=== PATIENT | female | born 1990 | race Caucasian/White ===

== ENCOUNTER 2019-01-10 04:20 | Inpatient (IN) | payer BC ==
[2019-01-10] MEDS ORDERED: SODIUM CHLORIDE 0.9% FLUSH 10 ML SOL IV PRN (05:14)
[2019-01-10] MEDS ORDERED: FENTANYL 100MCG/2ML SOL IV PRN (05:14)
[2019-01-10] MEDS ORDERED: MEPIVACAINE HCL 1% MPF 30 ML/VIAL SOL INFIL PRN (05:14)
[2019-01-10] MEDS ORDERED: METHYLERGONOVINE MALEATE 0.2 MG/ML SOL IM PRN (05:14)
[2019-01-10] MEDS ORDERED: CARBOPROST 250 MCG/ML SOL IM PRN (05:14)
[2019-01-10] MEDS: SODIUM CHLORIDE 0.9% FLUSH 10 ML SOL IV SCH ×3 (05:15→20:39)
[2019-01-10] MEDS ORDERED: EPHEDRINE SULFATE 50 MG/ML SOL IV PRN (12:14)
[2019-01-10] MEDS ORDERED: DIPHENHYDRAMINE 50 MG/ML SOL IV PRN (12:14)
[2019-01-10] MEDS ORDERED: NALOXONE HYDROCHLORIDE 0.4 MG/ML SOL IV PRN (12:14)
[2019-01-10] MEDS ORDERED: NALBUPHINE HCL 20 MG/ML SOL IV PRN (12:14)
[2019-01-10] MEDS ORDERED: LACTATED RINGERS 1,000 ML IV SCH (12:15)
[2019-01-10] MEDS: LACTATED RINGERS 1,000 ML IV PRN ×2 (12:25→13:50)
[2019-01-10] MEDS ORDERED: FENTANYL 250 MCG/ 5ML SOL ONE (12:29)
[2019-01-10] MEDS ORDERED: LIDOCAINE HCL 2% MPF 10 ML SOL ONE (12:29)
[2019-01-10] MEDS ORDERED: ROPIVACAINE HYDROCHLORIDE 5 MG/ML SOL ONE (12:29)
[2019-01-10] MEDS ORDERED: LIDOCAINE 1% W/EPI MPF 30 ML SOL ONE (12:30)
[2019-01-10 12:36] LABS: BASOPHILS % (AUTO) 1 % (0-3); EOSINOPHILS % (AUTO) 1 % (0-9); HEMATOCRIT 33 % (35-47); LYMPHOCYTES % (AUTO) 18.6 % (10-50); MEAN CORPUSCULAR HEMOGLOBIN 28.1 pg (27.0-32.0); MEAN CORPUSCULAR HGB CONC 33.2 gm/dl (32.0-36.0); MEAN CORPUSCULAR VOLUME 85 fL (81-99); MONOCYTES % (AUTO) 8.5 % (0-12); NEUTROPHILS % (AUTO) 71.2 % (37-80)
[2019-01-10] MEDS: OXYTOCIN 10000 MU/ML SOL IM PRN ×2 (15:36→15:40)
[2019-01-10] MEDS ORDERED: BENZOCAINE/MENTHOL 1 SPR TOP PRN (16:15)
[2019-01-10] MEDS ORDERED: METHYLERGONOVINE MALEATE 0.2 MG TAB PO PRN (16:15)
[2019-01-10] MEDS ORDERED: WITCH HAZEL 1 EA PAD TOP PRN (16:15)
[2019-01-10] MEDS ORDERED: BISACODYL 10 MG SUP PR PRN (16:15)
[2019-01-10] MEDS ORDERED: FLEET ENEMA PR PRN (16:15)
[2019-01-10] MEDS ORDERED: TEMAZEPAM 15MG 15 MG CAP PO PRN (16:15)
[2019-01-10] MEDS: LACTATED RINGERS 1,000 ML IV SCH (18:21)
[2019-01-10] MEDS: IBUPROFEN 600 MG TAB PO PRN (18:21)
[2019-01-10] MEDS ORDERED: OXYTOCIN 10000 MU/ML SOL ONE ×2 (18:37→18:43)
[2019-01-10] MEDS ORDERED: EPHEDRINE SULFATE 50 MG/ML SOL ONE (18:43)
[2019-01-10] MEDS: DOCUSATE SODIUM 100 MG SGL PO SCH (20:39)
[2019-01-10] MEDS: APAP/HYDROCODONE 1 EACH TABLET PO PRN (22:20)
[2019-01-11] MEDS: SODIUM CHLORIDE 0.9% FLUSH 10 ML SOL IV SCH ×3 (03:29→15:18)
[2019-01-11] MEDS: IBUPROFEN 600 MG TAB PO PRN ×3 (06:49→21:02)
[2019-01-11] MEDS: DOCUSATE SODIUM 100 MG SGL PO SCH ×2 (17:25→21:02)
[2019-01-12] MEDS: IBUPROFEN 600 MG TAB PO PRN (03:31)
[2019-01-12 07:50] VITALS: BP 109/74; PULSE 66; RESP 12; TEMP 97.4; O2SAT 98
[2019-01-12] MEDS: DOCUSATE SODIUM 100 MG SGL PO SCH (09:19)
[2019-01-12] MEDS: APAP/HYDROCODONE 1 EACH TABLET PO PRN (10:28)
== END 2019-01-12 12:05 | disposition home or self-care (01) | DRG 560 ==
LOC: OBSVTOIN 04:20 → OB 04:20
PROVIDERS: ADMIT Family Medicine; ATTEND Family Medicine
PROC: 10E0XZZ Delivery of Products of Conception, External Approach (ICD-10-PCS; principal; 2019-01-11)
PROC: 0KQM0ZZ Repair Perineum Muscle, Open Approach (ICD-10-PCS; 2019-01-11)
DX: O80 Encounter for full-term uncomplicated delivery (principal); Z37.0 Single live birth; Z3A.40 40 weeks gestation of pregnancy; Z67.90 Unspecified blood type, Rh positive
CPT/HCPCS: 36415; 59025; 84112; 85018; 85025; J0670; J2590; J2795; J3010; A9270-GY; J3490